=== PATIENT | female | born 1955 | race Caucasian/White ===

== ENCOUNTER → 2016-11-07 | Outpatient (CLI) | payer OTHER, MEDICAID | LOC: BRMIMAGING 10:39 | PROVIDERS: ATTEND Family Medicine | DX: Z12.31 Encounter for screening mammogram for malignant neoplasm of breast (principal) | CPT/HCPCS: G0202 ==

== ENCOUNTER → 2017-12-26 | Outpatient (CLI) | payer OTHER, MEDICAID | LOC: BRMIMAGING 12:15 | PROVIDERS: ATTEND Family Medicine | DX: R10.9 Unspecified abdominal pain (principal); M79.7 Fibromyalgia; Z72.0 Tobacco use | CPT/HCPCS: 76705-PO; 76856-PO ==

== ENCOUNTER → 2018-03-08 | Outpatient (CLI) | payer OTHER, MEDICAID ==
[~2018-03-08] MED LIST: IOPAMIDOL (ISOVUE-300) 100 ML BTL ONE
== END ==
LOC: FIMAGING 15:26
PROVIDERS: ATTEND Surgery
DX: R10.31 Right lower quadrant pain (principal)
CPT/HCPCS: 74177; Q9967

== ENCOUNTER 2018-04-03 11:08 | Observation (INO) | payer OTHER, MEDICAID ==
--- NOTE | 2018-04-03 11:10 | PDHPUP ---
History & Physical Update H&P update statement: This history and physical update is based on an assessment of the patient which was completed after admission or registration (within 24 hours), but prior to the surgery/procedure. H&P update: H&P reviewed & patient examined, no change in patient's condition since H&P completed
[2018-04-03] MEDS ORDERED: ceFAZolin 2 GM/DEXTROSE 100 ML IV ONE (11:27)
[2018-04-03] MEDS ORDERED: LR 1,000 ML IV ONE (11:28)
[2018-04-03] MEDS ORDERED: LIDOCAINE 1% 2 ML INJ ID PRN (11:28)
[2018-04-03] MEDS ORDERED: BUPIVACAINE 0.5% 30 ML SDV ONE (11:29)
[2018-04-03] MEDS ORDERED: ceFAZolin 1 GM/5 ML SYR ONE (11:29)
--- NOTE | 2018-04-03 11:39 | PDANEPAE ---
ANE History of Present Illness here for ventral hernia repair ANE Past Medical History - Cardiovascular History Hx Hypertension: Yes Hx Arrhythmias: No Hx Chest Pain: Yes Hx Coronary Artery / Peripheral Vascular Disease: No Hx CHF / Valvular Disease: No Hx Palpitations: No Cardiovascular History Comment: ANGINA - Pulmonary History Hx COPD: Yes Hx Asthma/Reactive Airway Disease: Yes Hx Recent Upper Respiratory Infection: No Hx Oxygen in Use at Home: No Hx Sleep Apnea: Yes Sleep Apnea Screening Result - Last Documented: Positive Pulmonary History Comment: SARAH +; states does not have any longer and does not use cpap - Neurologic History Hx Cerebrovascular Accident: No Hx Seizures: No Hx Dementia: No Neurologic History Comment: fibromyalgia. hx migraines - Endocrine History Hx Diabetes: No Endocrine History Comment: HYPOTHYROID - Renal History Hx Renal Disorders: No - Liver History Hx Hepatic Disorders: No - Neurological & Psychiatric Hx Hx Neurological and Psychiatric Disorders: Yes Neurological / Psychiatric History Comment: HX OF DEPRESSION,. Hx of EXTREME CLAUSTROPHOBIA but states she no longer has this issue since not on pain killers - Cancer History Hx Cancer: No - Congenital Disorder History Hx Congenital Disorders: No - GI History Hx Gastrointestinal Disorders: Yes Gastrointestinal History Comment: GERD - Other Health History Other Health History: wears glasses. FULL DENTURES - Chronic Pain History Chronic Pain: Yes (fibromyalgia,) - Surgical History Prior Surgeries: hand surgeries, 2018. Left shoulder scope 2012, WISDOM TEETH, CHOLECYSTECTOMY, TUBAL LIGATION, R SHOULDER ARTHROSCOP, UVULECTOMY, TRACHEOSTOMY ANE Review of Systems Review of systems is: negative Review of Systems: - Exercise capacity METS (RN): 4 METS ANE Patient History - Allergies Allergies/Adverse Reactions: aspirin [Aspirin] Allergy (Verified 04/02/18 14:24) stomach upset codeine [Codeine] Allergy (Verified 04/02/18 14:24) stomach upset - Home Medications Home medications: home medication list seen and reviewed Home Medications: Levothyroxine [Synthroid 75 mcg (RX)] 02/03/12 [Last Taken 04/02/18] Lisinopril 15mg 02/03/12 [Last Taken 04/03/18 05:00] Cyclobenzaprine [Flexeril 10 MG (RX)] 04/10/12 [Last Taken 04/02/18] Atorvastatin Calcium [Lipitor 10 mg (*)] 09/24/14 [Last Taken 04/02/18] Meloxicam 04/02/18 [Last Taken 04/02/18 23:55] Vitamin D3 04/02/18 [Last Taken 04/02/18] - NPO status NPO Status: no food or drink >8 hours - Smoking Hx Smoking Status: Current every day smoker - Family Anes Hx Family Hx Anesthesia Complications: NONE ANE Labs/Vital Signs - Vital Signs Vital Signs: reviewed preoperatively; see RN documention for details Height: 163.83 cm Weight: 68.039 kg ANE Physical Exam - Airway Neck exam: FROM Mallampati Score: Class 1 - Pulmonary Pulmonary: no respiratory distress - Cardiovascular Cardiovascular: regular rate and rhythym ANE Anesthesia Plan Anesthesia Plan: general endotracheal anesthesia
[2018-04-03] MEDS ORDERED: NS 500 ML IV PRN (11:53)
[2018-04-03] MEDS ORDERED: NALOXONE HCL 0.4 MG/ML INJ IVP PRN (11:53)
[2018-04-03] MEDS ORDERED: fentaNYL 100 MCG/2 ML INJ IVP PRN (11:53)
[2018-04-03] MEDS ORDERED: MIDAZOLAM 2 MG/2 ML VIAL IVP ONE (11:53)
[2018-04-03] MEDS ORDERED: LR 500 ML IV PRN (11:53)
[2018-04-03] MEDS ORDERED: DEXAMETHASONE 4 MG/ML VIAL IVP PRN (11:53)
[2018-04-03] MEDS ORDERED: HYDROCODONE/APAP 5/325 TAB PO PRN (11:53)
[2018-04-03] MEDS ORDERED: ONDANSETRON 4 MG/2 ML VIAL IVP PRN ×2 (11:53→14:55)
[2018-04-03] MEDS ORDERED: oxyCODONE IR 5 MG TAB PO PRN (11:53)
[2018-04-03] MEDS ORDERED: ALBUTEROL 3 ML DEYVIAL IH PRN (11:53)
[2018-04-03] MEDS ORDERED: HYDROmorphONE/DILAUDID 2 MG/ML INJ IVP PRN (11:53)
--- NOTE | 2018-04-03 11:54 | PDANEPAE ---
ANE History of Present Illness here for ventral hernia repair ANE Past Medical History - Cardiovascular History Hx Hypertension: Yes Hx Arrhythmias: No Hx Chest Pain: Yes Hx Coronary Artery / Peripheral Vascular Disease: No Hx CHF / Valvular Disease: No Hx Palpitations: No Cardiovascular History Comment: ANGINA - Pulmonary History Hx COPD: Yes Hx Asthma/Reactive Airway Disease: Yes Hx Recent Upper Respiratory Infection: No Hx Oxygen in Use at Home: No Hx Sleep Apnea: Yes Sleep Apnea Screening Result - Last Documented: Positive Pulmonary History Comment: SARAH +; states does not have any longer and does not use cpap - Neurologic History Hx Cerebrovascular Accident: No Hx Seizures: No Hx Dementia: No Neurologic History Comment: fibromyalgia. hx migraines - Endocrine History Hx Diabetes: No Endocrine History Comment: HYPOTHYROID - Renal History Hx Renal Disorders: No - Liver History Hx Hepatic Disorders: No - Neurological & Psychiatric Hx Hx Neurological and Psychiatric Disorders: Yes Neurological / Psychiatric History Comment: HX OF DEPRESSION,. Hx of EXTREME CLAUSTROPHOBIA but states she no longer has this issue since not on pain killers - Cancer History Hx Cancer: No - Congenital Disorder History Hx Congenital Disorders: No - GI History Hx Gastrointestinal Disorders: Yes Gastrointestinal History Comment: GERD - Other Health History Other Health History: wears glasses. FULL DENTURES - Chronic Pain History Chronic Pain: Yes (fibromyalgia,) - Surgical History Prior Surgeries: hand surgeries, 2018. Left shoulder scope 2012, WISDOM TEETH, CHOLECYSTECTOMY, TUBAL LIGATION, R SHOULDER ARTHROSCOP, UVULECTOMY, TRACHEOSTOMY ANE Review of Systems Review of Systems: - Exercise capacity METS (RN): 4 METS ANE Patient History - Allergies Allergies/Adverse Reactions: aspirin [Aspirin] Allergy (Verified 04/02/18 14:24) stomach upset codeine [Codeine] Allergy (Verified 04/02/18 14:24) stomach upset - Home Medications Home Medications: Levothyroxine [Synthroid 75 mcg (RX)] 02/03/12 [Last Taken 04/02/18] Lisinopril 15mg 02/03/12 [Last Taken 04/03/18 05:00] Cyclobenzaprine [Flexeril 10 MG (RX)] 04/10/12 [Last Taken 04/02/18] Atorvastatin Calcium [Lipitor 10 mg (*)] 09/24/14 [Last Taken 04/02/18] Meloxicam 04/02/18 [Last Taken 04/02/18 23:55] Vitamin D3 10/15/18 [Last Taken 04/02/18] - Smoking Hx Smoking Status: Current every day smoker - Family Anes Hx Family Hx Anesthesia Complications: NONE ANE Labs/Vital Signs - Vital Signs Height: 163.83 cm Weight: 68.039 kg ANE Physical Exam - Airway Neck exam: FROM Mallampati Score: Class 1 Mouth exam: dentures - Pulmonary Pulmonary: no respiratory distress - Cardiovascular Cardiovascular: regular rate and rhythym - ASA Status ASA Status: II ANE Anesthesia Plan Anesthesia Plan: general endotracheal anesthesia
[2018-04-03] MEDS ORDERED: PROPOFOL/EMULSION 500 MG/50 ML BOTTLE IV ONE (11:58)
[2018-04-03] MEDS ORDERED: ROCURONIUM 50 MG/5 ML VIAL ONE (12:00)
[2018-04-03] MEDS ORDERED: fentaNYL 100 MCG/2 ML INJ ONE (12:10)
[2018-04-03] MEDS ORDERED: DEXAMETHASONE 4 MG/ML VIAL ONE (12:12)
[2018-04-03] MEDS ORDERED: ONDANSETRON 4 MG/2 ML VIAL ONE ×2 (12:12→14:29)
[2018-04-03] MEDS ORDERED: HYDROmorphONE/DILAUDID 2 MG/ML INJ ONE (12:29)
[2018-04-03] MEDS ORDERED: NEOSTIGMINE METHYLSULFATE 5 MG/5 ML SYR ONE (13:10)
[2018-04-03] MEDS ORDERED: GLYCOPYRROLATE 0.2 MG/1 ML VIAL ONE (13:10)
[2018-04-03] MEDS ORDERED: HYDROmorphONE/DILAUDID 1 MG/ML INJ IVP PRN (14:55)
[2018-04-03] MEDS ORDERED: OXYCODONE/APAP 5/325 TAB PO PRN (14:55)
[2018-04-03] MEDS ORDERED: KETOROLAC 15 MG/1 ML SDV IVP SCH (15:00)
--- NOTE | 2018-04-03 15:00 | POSTOPPROG ---
Post Op Note Date of Operation: 04/03/18 Surgeon: Luisito Up Linen Aide: Yaa Thomason Anesthesiologist: Anastacio Steen Anesthesia: GET(General Endotracheal) Pre-op Diagnosis: ventral hernia x 2 Post-op Diagnosis: same Procedure: open ventral hernia repair c mesh, lysis of adhesions Findings: 2 adjacent midline hernias Inf/Abcess present in the surg proc area at time of surgery?: No EBL: Minimal Complications: none Specimen(s): hernia sac
[2018-04-03] MEDS ORDERED: HYDROmorphone HCL 0.5 MG/0.5 ML SYR IVP PRN (15:30)
[2018-04-03] MEDS ORDERED: LABETALOL HCL 5 MG/ML 20 ML MDV IVP SCH (16:30)
[2018-04-03] MEDS ORDERED: LABETALOL HCL 5 MG/ML 20 ML MDV IVP PRN (16:30)
[2018-04-03] MEDS ORDERED: amLODIPine BESYLATE 5 MG TAB PO PRN (17:50)
--- NOTE | 2018-04-03 18:47 | POSTANESTH ---
Post Anesthetic Evaluation Cardiovascular Status: Normal, Stable Respiratory Status: Normal, Stable Level of Consciousness/Mental Status: Can Participate in Eval Pain Control: Adequate, Prn Tx Ordered Nausea/Vomiting Control: Adequate, Prn Tx Ordered Complications Possibly Related to Anesthesia: None Noted
[2018-04-03] MEDS: DOCUSATE SODIUM 100 MG CAP PO SCH (21:27)
[2018-04-03] MEDS ORDERED: Meloxicam [Meloxicam] 15 MG PO PRN (22:06)
[2018-04-03] MEDS: CYCLOBENZAPRINE 10 MG TAB PO SCH (22:17)
[2018-04-04 07:17] VITALS: BP 107/79
--- NOTE | 2018-04-04 08:34 | SOAPPROG ---
SOAP Progress Note Assessment/Plan: Assessment/Plan: 63 Y F s/p ventral hernia repair, POD#1. Doing well. Some pain, but percocet helped. Tolerating diet. Dc to home. S: see above, no nausea O: alert, nad ncat ctab rrr abd soft, inc cdi, ecchymosis, no erythema 04/04/18 08:32 Objective: Vital Signs Temp Pulse Resp BP Pulse Ox 37.1 C 89 14 107/79 93 04/04/18 07:15 04/04/18 07:15 04/04/18 07:15 04/04/18 07:15 04/04/18 07:15 04/03/18 04/04/18 04/05/18 05:59 05:59 05:59 Intake Total 1150 Output Total 305 Balance 845 ICD10 Worksheet Patient Problems: Problems Problem Status Onset Ventral hernia Acute - ICD10 Problem Qualifiers (1) Ventral hernia
[2018-04-04] MEDS: DOCUSATE SODIUM 100 MG CAP PO SCH (09:15)
[2018-04-04] MEDS: CYCLOBENZAPRINE 10 MG TAB PO SCH (09:15)
[2018-04-05] MEDS ORDERED: ENOXAPARIN 40 MG/0.4 ML SYR SC SCH (09:00)
== END 2018-04-04 10:45 | disposition home or self-care (01) ==
LOC: FSGY 11:08 → F3N 14:54 → F3E 15:48
PROVIDERS: ADMIT Surgery; ATTEND Surgery
PROC: 0WUF0JZ Supplement Abdominal Wall with Synthetic Substitute, Open Approach (ICD-10-PCS; principal; 2018-04-03 12:45)
DX: K43.2 Incisional hernia without obstruction or gangrene (principal); M79.7 Fibromyalgia; F20.9 Schizophrenia, unspecified; F32.9 Major depressive disorder, single episode, unspecified; E78.5 Hyperlipidemia, unspecified; I10 Essential (primary) hypertension; E03.9 Hypothyroidism, unspecified
CPT/HCPCS: 49560; 88302; C1781; G0378; J0690; J1100; J1170; J2405; J2704; J2710; J3010

== ENCOUNTER 2018-05-15 02:03 | Emergency (ER) | payer OTHER, MEDICAID ==
[2018-05-15] MEDS ORDERED: FAMOTIDINE 20 MG/NACL 50 ML IV ONE (02:25)
--- NOTE | 2018-05-15 02:31 | EDPHY ---
H & P Stated Complaint: ABD PAIN, LIKE THE HERNIA , CANNOT SLEEP OR EAT Time Seen by Provider: 05/15/18 02:15 HPI/ROS: HPI The patient presents with abdominal pain which has been present for the last 2 weeks though is getting progressively worse. On April 03 she underwent hernia repair of a ventral hernia with mesh and lysis of adhesions of performed by Dr. Up. She was doing well postoperatively and did not follow up with Dr. Up. However, over the last few weeks she reports upper abdominal pain at the midline over the site of her hernia repair which comes and goes. It awoke her from sleep at about 12:25 a.m. This morning. She normally drinks milk and this improves her symptoms, however she tried this and has had ongoing pain. She does not have any nausea or vomiting. Her last bowel movement was yesterday and was normal. REVIEW OF SYSTEMS 10 systems were reviewed and negative with the exception of the elements mentioned in the history of present illness. PMHx: Recent hernia repair with mesh as above, hypertension, hypothyroid Soc Hx: Cigarette smoker PHYSICAL General Appearance: Alert, no distress Eyes: Pupils equal and round no pallor or injection ENT, Mouth: Mucous membranes moist Respiratory: There are no retractions, lungs are clear to auscultation Cardiovascular: Regular rate and rhythm Gastrointestinal: Midline surgical abdominal incisional scar is well healed with no surrounding erythema, warmth, edema Abdomen is soft and tender in the epigastrium and at the midline, no masses, bowel sounds normal Neurological: A&O, moves all extremities Skin: Warm and dry, no rashes Musculoskeletal: Neck is supple non tender Extremities: symmetrical, full range of motion Psychiatric: Patient is oriented X 3, there is no agitation Source: Patient, Old records Exam Limitations: No limitations - Personal History Current Tetanus/Diphtheria Vaccine: Yes Tetanus Vaccine Date: 2011 - Medical/Surgical History Hx Asthma: No Hx Chronic Respiratory Disease: No Hx Diabetes: No Hx Cardiac Disease: No Hx Renal Disease: No Hx Cirrhosis: No Hx Alcoholism: No Hx HIV/AIDS: No Hx Splenectomy or Spleen Trauma: No Other PMH: HYPERTENSION. HYPOTHYROIDISM. DEPRESSION AND ANXIETY. FM/Chronic back pain/ trach/ abd surg./ O2 @ night/ Sleep Apnea. Fibromyalgia, osteoarthritis, rehab from narcotics, bilat arm surgeries and tendinitis. ripped muscle rt shoulder, HERNIA SUR/16/18. declines pain meds/prev addiction - Social History Smoking Status: Current every day smoker Constitutional: Initial Vital Signs Temperature (C) 36.4 C 05/15/18 02:09 Heart Rate 92 05/15/18 02:09 Respiratory Rate 18 05/15/18 02:09 Blood Pressure 161/101 H 05/15/18 02:09 O2 Sat (%) 96 05/15/18 02:09 O2 Delivery Mode Room Air Allergies/Adverse Reactions: fentanyl Allergy (Intermediate, Verified 05/15/18 02:33) Dyspnea aspirin [Aspirin] Allergy (Verified 05/15/18 02:33) stomach upset codeine [Codeine] Allergy (Verified 05/15/18 02:33) stomach upset ketorolac [From Toradol] Allergy (Verified 05/15/18 02:33) Home Medications: Medication Instructions Recorded Atorvastatin Calcium [Lipitor 20 20 mg PO DAILY 04/03/18 mg (*)] Cholecalciferol Vit D3 [Vitamin D3 5,000 units PO DAILY 04/03/18 (*)] Cyclobenzaprine [Flexeril 10 MG 10 mg PO TID 04/03/18 (*)] Herbals/Supplements -Info Only 1 ea PO DAILY 04/03/18 Levothyroxine [Synthroid 25 mcg 25 mcg PO DAILY06 04/03/18 (*)] Lisinopril [Zestril] 30 mg PO DAILY 04/03/18 Meloxicam 15 mg PO DAILY PRN 04/03/18 Famotidine [Pepcid 20 MG (*)] 20 mg PO BID #30 tab 05/15/18 Medical Decision Making Differential Diagnosis: 63-year-old female presents with intermittent abdominal pain about 5 weeks status post ventral hernia repair with mesh. This morning, symptoms awoke her, she has been unable to sleep because of the pain which normally improves with milk though did not this morning. On exam, she is generally well-appearing, vital signs are normal, she has mild tenderness to her midline. Differential diagnosis includes gastritis, postoperative complication such as seroma or infection, less likely bowel obstruction. In the emergency department, patient had basic labs checked that were unremarkable. Her pain did not improve much here. I consulted with Dr. Up the patient's general surgeon. He recommends CT scan of her abdomen which was performed. This showed no acute findings though some inflammation at the GE junction. I have discussed these findings with the patient at the bedside. I have recommended that she start taking famotidine. She was on a course of meloxicam which could have exacerbated her symptoms. She is to follow up with Dr. Up as an outpatient. I have also given her information for GI follow-up. - Data Points Laboratory Results: Laboratory Results 05/15/18 02:30 05/15/18 02:30 05/15/18 05/15/18 05/15/18 03:27 02:30 02:30 WBC 6.60 10^3/uL 10^3/uL (3.80-9.50) RBC 4.32 10^6/uL 10^6/uL (4.18-5.33) Hgb 14.0 g/dL g/dL (12.6-16.3) Hct 41.1 % % (38.0-47.0) MCV 95.1 fL fL (81.5-99.8) MCH 32.4 pg pg (27.9-34.1) MCHC 34.1 g/dL g/dL (32.4-36.7) RDW 11.9 % % (11.5-15.2) Plt Count 284 10^3/uL 10^3/uL (150-400) MPV 8.6 fL L fL (8.7-11.7) Neut % (Auto) 45.9 % % (39.3-74.2) Lymph % (Auto) 39.1 % % (15.0-45.0) [place] % (Auto) 9.4 % % (4.5-13.0) Eos % (Auto) 4.8 % % (0.6-7.6) Baso % (Auto) 0.6 % % (0.3-1.7) Nucleat RBC Rel Count 0.0 % % (0.0-0.2) Absolute Neuts (auto) 3.03 10^3/uL 10^3/uL (1.70-6.50) Absolute Lymphs (auto) 2.58 10^3/uL 10^3/uL (1.00-3.00) Absolute Monos (auto) 0.62 10^3/uL 10^3/uL (0.30-0.80) Absolute Eos (auto) 0.32 10^3/uL 10^3/uL (0.03-0.40) Absolute Basos (auto) 0.04 10^3/uL 10^3/uL (0.02-0.10) Absolute Nucleated RBC 0.00 10^3/uL 10^3/uL (0-0.01) Immature Gran % 0.2 % % (0.0-1.1) Immature Gran # 0.01 10^3/uL 10^3/uL (0.00-0.10) Sodium 141 mEq/L mEq/L (135-145) Potassium 4.4 mEq/L mEq/L (3.3-5.0) Chloride 109 mEq/L mEq/L (97-110) Carbon Dioxide 25 mEq/l mEq/l (22-31) Anion Gap 7 mEq/L mEq/L (6-14) BUN 16 mg/dL mg/dL (7-23) Creatinine 0.8 mg/dL mg/dL (0.6-1.0) Estimated GFR > 60 Glucose 83 mg/dL mg/dL (70-100) Calcium 9.8 mg/dL mg/dL (8.5-10.4) Total Bilirubin 0.4 mg/dL mg/dL (0.1-1.4) Conjugated Bilirubin 0.4 mg/dL mg/dL (0.0-0.5) Unconjugated Bilirubin 0.0 mg/dL mg/dL (0.0-1.1) AST 24 IU/L IU/L (14-46) ALT 28 IU/L IU/L (9-52) Alkaline Phosphatase 118 IU/L IU/L (38-126) Total Protein 6.9 g/dL g/dL (6.3-8.2) Albumin 3.9 g/dL g/dL (3.5-5.0) Lipase 116 IU/L IU/L (23-300) Urine Color YELLOW Urine Appearance HAZY Urine pH 6.0 (5.0-7.5) Ur Specific [place] 1.006 (1.002-1.030) Urine Protein NEGATIVE (NEGATIVE) Urine Ketones NEGATIVE (NEGATIVE) Urine Blood 1+ H (NEGATIVE) Urine Nitrate NEGATIVE (NEGATIVE) Urine Bilirubin NEGATIVE (NEGATIVE) Urine Urobilinogen NEGATIVE EU EU (0.2-1.0) Ur Leukocyte Esterase TRACE H (NEGATIVE) Urine RBC 5-10 /hpf H /hpf (0-3) Urine WBC 3-5 /hpf H /hpf (0-3) Ur Epithelial Cells 1+ /lpf /lpf (NONE-1+) Urine Bacteria 3+ /hpf H /hpf (NONE SEEN) Urine Mucus TRACE /lpf /lpf (NONE-1+) Urine Glucose NEGATIVE (NEGATIVE) Medications Given: Discontinued Medications Famotidine/Sodium Chloride (Pepcid 20 Mg (Premix)) 50 mls @ 200 mls/hr IV EDNOW ONE Stop: 05/15/18 02:39 Last Admin: 05/15/18 02:34 Dose: 50 mls Departure - Departure Disposition: Home, Routine, Self-Care Clinical Impression: Epigastric abdominal pain, H/O ventral hernia repair Condition: Good Instructions: Gastritis (ED), Diet for Stomach Ulcers and Gastritis (ED) Additional Instructions: Please make sure to avoid any foods that are spicy or acidic for the next few days. Please avoid eating a meal at least 2 hr before bedtime. If your pain continues, I would recommend that you follow up with the GI specialist, I have given you the name of someone you can see below. Dr. Up would like for you to contact him to make a follow-up appointment with his office. Referrals: Luisito Up MD [Primary Care Provider] - As per Instructions Ilia Ochoa MD [Medical Doctor] - As per Instructions Prescriptions: Famotidine [Pepcid 20 MG (*)] 20 mg PO BID #30 tab
[2018-05-15 02:41] LABS: PLATELET COUNT 284 10^3/uL (150-400)
[2018-05-15] MEDS ORDERED: IOPAMIDOL (ISOVUE 370) 100 ML BTL IV ONE (03:22)
[2018-05-15 04:10] VITALS: BP 138/91
== END 2018-05-15 04:09 | disposition home or self-care (01) ==
DX: R10.13 Epigastric pain (principal); I10 Essential (primary) hypertension; E03.9 Hypothyroidism, unspecified; Z87.19 Personal history of other diseases of the digestive system; F17.200 Nicotine dependence, unspecified, uncomplicated
CPT/HCPCS: 74177; 96365; 99285; Q9967

== ENCOUNTER → 2018-07-06 | Outpatient (CLI) | payer OTHER, MEDICAID | LOC: CIMAGING 09:08 | PROVIDERS: ATTEND Family Medicine | DX: R07.81 Pleurodynia (principal) | CPT/HCPCS: 71101-PO ==

== ENCOUNTER → 2018-09-12 | Outpatient (CLI) | payer OTHER, MEDICAID | LOC: FIMAGING 11:57 | PROVIDERS: ATTEND Surgery | DX: R10.11 Right upper quadrant pain (principal); M79.89 Other specified soft tissue disorders ==